=== PATIENT | male | born 1980 | race African-American/Black ===

== ENCOUNTER → 2017-03-14 | Outpatient (CLI) | payer OTHER ==
[~2017-03-14] MED LIST: AMOXICILLIN500 M1 PO; BACTRIM DS TABL1 TA1 PO; BIOTIN2500 MCG PO; CIPRO PO; DOXYCYCLINE150 MG PO; HYDROCHLOROTH12.5 MG PO; KETOPROFEN PO; LORTAB 5/500 TA1 TA1 PO; MEDROL DOSEPAK4 MG PO; PERCOCET PO; PRAVASTATIN SOD40 MG PO; VOLTAREN75 MG PO; ZYRTEC PO
== END | disposition home or self-care (01) ==
LOC: CBAR 09:26
DX: Z01.812 Encounter for preprocedural laboratory examination (principal); E66.01 Morbid (severe) obesity due to excess calories
CPT/HCPCS: 36415; 84443; 86677; G0463

== ENCOUNTER 2017-03-20 10:37 | Emergency (ER) | payer OTHER ==
[~2017-03-20] VITALS: Ht 188 cm; Wt 137.0 kg
[~2017-03-20 10:37] MED LIST changes: -BIOTIN2500 MCG PO; -HYDROCHLOROTH12.5 MG PO; -PRAVASTATIN SOD40 MG PO
[2017-03-20 11:09] LABS: URINE SOURCE CLEAN CATCH
[2017-03-20 11:22] LABS: URINE APPEARANCE CLEAR; URINE BILIRUBIN NEG (NEG); URINE BLOOD NEG (NEG); URINE COLOR YELLOW; URINE GLUCOSE NEG (NEG); URINE KETONE NEG (NEG); URINE LEUKOCYTE ESTERASE 2+ (NEG); URINE NITRATE NEG (NEG); URINE PH 8.5 (5-8); URINE PROTEIN NEG (NEG); URINE SPECIFIC GRAVITY 1.019 (1.003-1.035); URINE UROBILINOGEN 0.2 MG/DL (NEG)
[2017-03-20 11:26] LABS: CULTURE INDICATED? YES; URINE BACTERIA AUWI NEG (NEGATIVE); URINE SQUAMOUS EPITHELIAL CELL NONE SEEN /[HPF]; UWBCS1 AUWI 50-100 (0-5)
[2017-03-23 11:50] LABS: CHLAMYDIA TRACH Not Detected (Not Detected); N GONOR Detected (Not Detected)
[2017-03-25] MEDS ORDERED: PRAVASTATIN SOD40 MG PO (12:37)
[2017-03-25] MEDS ORDERED: BIOTIN2500 MCG PO (12:37)
[2017-03-25] MEDS ORDERED: HYDROCHLOROTH12.5 MG PO (12:38)
== END 2017-03-20 12:15 | disposition home or self-care (01) ==
LOC: CED 10:37 → CFTX 10:37
DX: N34.1 Nonspecific urethritis (principal); Z20.2 Contact with and (suspected) exposure to infections with a predominantly sexual mode of transmission
CPT/HCPCS: 81003; 87086; 87491; 87591; 96372; 99284; J0696

== ENCOUNTER → 2017-03-25 | Outpatient (CLI) | payer OTHER ==
[~2017-03-25] MED LIST changes: +BIOTIN2500 MCG PO; +HYDROCHLOROTH12.5 MG PO; +PRAVASTATIN SOD40 MG PO
--- NOTE | ~2017-03-25 | EKG ---
PATIENT: DIMPLE WOODS UNIT #: [id number] Ventricular Rate: 74 BPM Atrial Rate: 74 BPM P-R Interval: 150 ms QRS Duration: 88 ms Q-T Interval: 360 ms QTC Calculation(Bezet): 399 ms P Atlantic: 53 degrees Calculated R Atlantic: 7 degrees Calculated T Atlantic: 9 degrees Diagnosis Line: Sinus rhythm with marked sinus arrhythmia Diagnosis Line: Minimal voltage criteria for LVH, may be normal Diagnosis Line: variant Diagnosis Line: Early repolarization Diagnosis Line: Borderline ECG Diagnosis Line: When compared with ECG of 06-SEP-2011 01:27, Diagnosis Line: No significant change was found Diagnosis Line: Confirmed by JAREK TAVERAS MD ([id number]) on 03/25/2017 Diagnosis Line: 5:25:52 PM INTERPRETING MD: DARCY LERNER
--- NOTE | ~2017-03-25 | CR63 ---
[facility] A Service of [facility] & [facility] RADIOLOGY TEXT RESULTS PATIENT: DIMPLE WOODS LOCATION: [facility] : [birth year] UNIT #: [id number] AGE: [address]: José Luis Paz III, MD SEX: M ORDER DR: [id number] [facility] [address], [place] [address] [id number] O MR#: [id number] Acc #: [id number] NAME: DIMPLE WOODS. : 1980 SEX: M STUDY DATE/TIME: 03/25/2017 8:15 UNIT: [facility] ROOM: STUDY DESCRIPTION: CR Chest 2 View Attending Physician: José Luis Paz III, M.D. Referring Physician: José Luis Paz III, M.D. Ordering Physician: José Luis Paz III, M.D. [facility] REPORT This report is preliminary unless electronic signature is present EXAM 2 views of the chest COMPARISON None INDICATIONS 36-year-old male. Preoperative respiratory exam prior to possible paraesophageal hernia repair as well as planned Lap-Band placement. FINDINGS There is poor inspiratory effort. Cardiomediastinal silhouette is within normal limits. There is crowding of central bronchovascular structures. No evidence of acute airspace disease, pneumothorax, or pleural effusion. IMPRESSION No acute radiographic abnormality. Normal heart size. Dictated by... Albaro Nelson M.D. THIS IS AN ELECTRONICALLY VERIFIED REPORT Albaro Nelson M.D. at 03/27/2017 9:02 AM HARIS/luh TD: 03/25/2017 18:40 JOB #: [id number] MEDICAL IMAGING REPORT Page 1 of 1 COPY
--- NOTE | ~2017-03-25 | CR97 ---
[facility] A Service of [facility] & [facility] RADIOLOGY TEXT RESULTS PATIENT: DIMPLE WOODS LOCATION: [facility] : 82 UNIT #: [id number] AGE: [address]: José Luis Paz III, MD SEX: M ORDER DR: [id number] [facility] [address], [place] [address] [id number] O MR#: [id number] Acc #: [id number] NAME: DIMPLE WOODS. : 1980 SEX: M STUDY DATE/TIME: 03/25/2017 9:50 UNIT: [facility] ROOM: STUDY DESCRIPTION: CR Esophagram Attending Physician: José Luis Paz III, M.D. Referring Physician: José Luis Paz III, M.D. Ordering Physician: José Luis Paz III, M.D. Primary Care Physician: [facility] MEDICAL IMAGING REPORT This report is preliminary unless electronic signature is present EXAM Esophagram CLINICAL HISTORY Planned bariatric surgery. PROCEDURE The study performed is solid column upper GI with 0.3 minutes of fluoroscopy and 7 spot images. FINDINGS The esophagus is normal in course and caliber without mass, stricture, ulceration or hernia. IMPRESSION Normal esophagram. Dictated by... Jayme Chandler M.D. THIS IS AN ELECTRONICALLY VERIFIED REPORT Jayme Chandler M.D. at 03/28/2017 9:06 AM SHILPA/demetrio TD: 03/26/2017 02:05 JOB #: [id number] MEDICAL IMAGING REPORT Page 1 of 1 COPY
[2017-03-25 09:21] LABS: HEMATOCRIT 43.2 % (38.0-50.0); HEMOGLOBIN 14.4 gm/dL (13.0-16.0); MEAN CELL VOLUME 84.2 FL (83-96); MEAN CORPUSCULAR HEMOGLOBIN 28.1 PG (28-34); MEAN CORPUSCULAR HGB CONC 33.3 g/dL (30-36); MEAN PLATELET VOLUME 8.1 FL (6.5-11.5); RED BLOOD COUNT 5.12 X10e (3.90-5.60); RED CELL DISTRIBUTION WIDTH 14.1 % (11.0-15.5); WHITE BLOOD COUNT 5.2 X10e3 (4.0-10.5)
[2017-03-25 09:49] LABS: ALBUMIN SERUM 4.3 g/dL (3.5-5.0); BILIRUBIN,TOTAL 0.7 mg/dL (0.2-2.0); BUN/CREATININE RATIO 12.72; CREATININE SERUM 1.1 mg/dL (0.6-1.4); POTASSIUM 4.3 mmol/L (3.5-5.1); PROTEIN TOTAL SERUM 8.3 g/dL (6.0-8.3)
== END | disposition home or self-care (01) ==
LOC: CRAD 07:30 → CAMB 09:00
PROVIDERS: Surgery
DX: Z01.818 Encounter for other preprocedural examination (principal)
CPT/HCPCS: 36415; 71020; 74220; 80053; 80061; 84443; 85027; 93005

== ENCOUNTER → 2017-04-06 | Day surgery (SDC) | payer OTHER ==
--- NOTE | ~2017-04-06 | OR ---
Unit #: [id number] #: [id number] Patient: DIMPLE WOODS [id number] [facility] [address] [place], [place] [address] [id number] O MR#: [id number] NAME: DIMPLE WOODS ROOM: Date of Procedure: 04/06/2017 Admission Date: 04/06/2017 Surgeon: José Luis Paz III, M.D. : 1980 Attending Physician: José Luis Paz III, M.D. Referring Physician: José Luis Paz III, M.D. Primary Care Physician: [facility] OPERATIVE REPORT PREOPERATIVE DIAGNOSIS Chronic morbid obesity. POSTOPERATIVE DIAGNOSIS Chronic morbid obesity. SECONDARY DIAGNOSES Anterior paraesophageal hernia. PROCEDURES PERFORMED Laparoscopic adjustable gastric banding (AP large with low-profile port) and laparoscopic paraesophageal hernia repair. STATISTICAL MODELER Alan Jose M.D. SPECIMENS None. COMPLICATIONS None apparent. ESTIMATED BLOOD LOSS Minimal. INDICATIONS FOR PROCEDURE This is a 36-year-old gentleman, who has chronic morbid obesity and associated comorbidities of hypertension. He has been through the bariatric program at [facility] and understands the risks and benefits of the procedure. DESCRIPTION OF PROCEDURE After consent was obtained, including the risks and benefits of slippage, erosion, port dysfunction, and possible failure of weight loss due to noncompliance, the patient was taken to the operating room and placed in the supine position. General anesthetic was administered and the abdomen was prepped and draped in standard surgical fashion. I began by making a 2 cm incision just above and to the left of the umbilicus. I used a Visiport to enter the peritoneal cavity without any difficulty. C02 pneumoperitoneum was then established. Next, I placed a 5 mm port in the right upper quadrant, a 5 mm Bobo liver retractor in Unit #: [id number] #: [id number] Patient: DIMPLE WOODS the subxiphoid region to provide exposure of the gastroesophageal junction. Next, a 10 mm port was placed in the left upper quadrant and a 5 mm port was placed in the left lateral subcostal region. I began by performing an examination of the GE junction to evaluate for a hiatal hernia. We then scored the peritoneal attachments overlying the angle of His. I then opened up the clear space in the gastrohepatic ligament, and then using 2 blunt graspers, I identified the small fat pad crossing over the right crura. I swept the fat anterior to the crura off the crura and using the pars flaccida, I created a retrogastric tunnel where the blunt grasper exited at the angle of His. Once I had made this tunnel safely, I then inserted an Allergan AP band into the abdominal cavity. This adjustable gastric band was then place around the upper part of the stomach and fastened and buckled anteriorly. We then tacked the lateral fundus over the band to the proximal pouch with 2 interrupted 0 Ethibond sutures. I then used a third stitch to imbricate the excess anterior stomach by going from the lesser curvature up towards where the last stitch was placed. We then had excellent hemostasis. I removed the Bobo liver retractor. We then removed the port tubing through the initial port incision. The rest of the ports were removed, and the pneumoperitoneum was released. I then left a small tail on the tubing. We then attached the port to the excess band tubing. We placed a piece of Prolene mesh along the back side of the port and used a Prolene stitch to anchor this mesh in place. We then trimmed the excess mesh so that just a small footprint of mesh was in place behind the port. I then inserted the tubing back into the abdominal cavity, and we placed the port into a small pocket that was made just inferior to where our initial port incision was made. The mesh was in direct contact with the fascia, and this will scar in place to hold the port in place. We then injected all the port sites with 0.25% plain Marcaine, and I reapproximated the skin edges with interrupted 4-0 Vicryl subcuticular sutures. Steri-strips were then applied. The patient tolerated the procedure without any problems and returned to the recovery room in stable condition. ADDENDUM After exposure of the GE junction, the patient was noted to have a small to medium size anterior paraesophageal hernia. I scored the phrenoesophageal ligament, reduced the hernia defect including the hernia sac and after identifying both the right and left crura, I reapproximated the defect with an interrupted 0 Ethibond [id number] suture. I then proceeded with the case as listed above. Dictated by... José Luis Paz III, M.D. VCL/maya TD: 04/07/2017 11:55 JOB #: [id number] CC: Eryn Kimbrough M.D. Unit #: [id number] #: [id number] Patient: DIMPLE WOODS OPERATIVE REPORT Page 1 of 1 X José Luis Paz III, MD X PROCEDURE OPERATIVE NOTE
--- NOTE | ~2017-04-06 | CR7 ---
[facility] A Service of [facility] / [facility] RADIOLOGY TEXT RESULTS PATIENT: DIMPLE WOODS [id number] [birth year] UNIT #: [id number] AGE: [address]: José Luis Paz III, MD SEX: M ORDER DR: [id number] [id number] [facility] [address] [place], [place] [address] [id number] O MR#: [id number] Acc #: [id number] NAME: DIMPLE WOODS. : 1980 SEX: M STUDY DATE/TIME: 04/06/2017 9:18 UNIT: [facility] ROOM: STUDY DESCRIPTION: CR Abdomen Single AP View Attending Physician: José Luis Paz III, M.D. Referring Physician: José Luis Paz III, M.D. Ordering Physician: José Luis Paz III, M.D. Primary Care Physician: [facility] MEDICAL IMAGING REPORT This report is preliminary unless electronic signature is present EXAM Supine radiograph abdomen HISTORY Postop Lap-Band PACU back, short of air with activity, morbid obesity, today. TECHNIQUE Supine radiograph of the abdomen is presented. COMPARISON Esophagram 03/25/2017 FINDINGS Current examination is suboptimal. Right juan abdomen not included on field of view. Status post Lap-Band device placement. Band component at anticipated level of gastroesophageal junction based on prior esophagram. Catheter component radiographically intact. Port component implanted over the lower left juan abdomen. The bowel gas pattern is normal. No free air. Dictated by... Nilson Rene M.D. THIS IS AN ELECTRONICALLY VERIFIED REPORT Nilson Rene M.D. at 04/07/2017 7:30 PM LANCE/ashley TD: 04/06/2017 16:10 JOB #: [id number] [facility] A Service of [facility] / [facility] RADIOLOGY TEXT RESULTS PATIENT: DIMPLE WOODS [facility] [id number] : [birth year] UNIT #: [id number] AGE: [address]: José Luis Paz III, MD SEX: M ORDER DR: MEDICAL IMAGING REPORT Page 1 of 1 COPY
== END | disposition home or self-care (01) ==
LOC: CSUR 06:11
DX: E66.01 Morbid (severe) obesity due to excess calories (principal); K44.9 Diaphragmatic hernia without obstruction or gangrene; I10 Essential (primary) hypertension; E78.5 Hyperlipidemia, unspecified; Z68.37 Body mass index [BMI] 37.0-37.9, adult; Z79.899 Other long term (current) drug therapy; Z98.890 Other specified postprocedural states
CPT/HCPCS: 74000; 93005; C1781; J0330; J0690; J1100; J1650; J1885; J2250; J2405; J2710; J3010